=== PATIENT | female | born 1965 | race Caucasian/White ===

== ENCOUNTER 2017-11-29 15:05 | Observation (INO) | payer SELFPAY ==
[~2017-11-29] VITALS: Ht 154.9 cm; Wt 68.0 kg
[~2017-11-29 15:05] MED LIST: LIPI40TA PO; VARE1PAK3 PO; VARE1PAK5 PO
[2017-11-29 15:09] VITALS: BP 120/85; PULSE 118; RESP 18; TEMP 98; O2SAT 97
[2017-11-29] MEDS ORDERED: VANCOMYCIN INJ 1,000 MG in SODIUM CHLOR 0.9% 250 ML INJ 250 ML IV ONE (17:45)
[2017-11-29] MEDS ORDERED: TETANUS/DIPHTHERIA TOXOID ADULT 0.5 ML VIAL IM ONE (17:45)
--- NOTE | 2017-11-29 17:45 | PD ---
HPI Chief Complaint: Skin Problem Time Seen by Provider: 17:26 Travel History International Travel<30 days: No Contact w/Intl Traveler<30days: No Traveled to known affect area: No History of Present Illness HPI 52-year-old female complains of redness swelling and pain on the left foot and left leg. Patient states that she was bitten by insect 2 days ago. Patient states that she started noticing blister and increased redness swelling of the left foot left ankle with redness that extended to the left leg. Patient denies any fever chills. Patient denies any chest pain or shortness of breath. Patient states that the pain is burning pain started in her left foot and left ankle area with radiation to left leg. Patient took some leftover Bactrim DS yesterday and today. Patient states that she took Bactrim DS in the past and has tingling sensation around her mouth in the past. Patient is not up-to- date with TD booster. PFSH Past Medical History Autoimmune Disease: No Heart Rhythm Problems: No Cardiac Catheterization: No Cardiovascular Problems: Yes High Cholesterol: No Congestive Heart Failure: No Cerebrovascular Accident: Yes (2016) Diabetes: No Endocrine: No Genitourinary: No Immune Disorder: No Musculoskeletal: No Neurologic: No Reproductive: No Respiratory: No Past Surgical History Appendectomy: Yes Coronary Artery Bypass Graft: No Hysterectomy: Yes Tonsillectomy: Yes Social History Alcohol Use: Yes (2-3 GLASSES OF WINE/DAY) Tobacco Use: Yes (3/4 PPD) Substance Use: No Allergies-Medications (Allergen,Severity, Reaction): Coded Allergies: penicillin G (Unverified Allergy, Unknown, 05/22/17) Reported Meds & Prescriptions Reported Meds & Active Scripts Active Lipitor (Atorvastatin Calcium) 40 Mg Tab 40 Mg PO HS Chantix Continuing Month Elia (Varenicline) 1 Mg Elia 1 Mg PO BIDPC Chantix Starting Month Elia (Varenicline) 0.5 mg X 11 & 1 mg X 42 Pack 1 Tab PO DIRECTED Review of Systems General / Constitutional: No: Fever Eyes: No: Visual changes HENT: No: Headaches Cardiovascular: No: Chest Pain or Discomfort Respiratory: No: Shortness of Breath Gastrointestinal: No: Abdominal Pain Genitourinary: No: Dysuria Musculoskeletal: Positive: Edema, Pain Skin: No Rash Neurologic: No: Weakness Psychiatric: No: Depression Endocrine: No: Polydipsia Hematologic/Lymphatic: No: Easy Bruising Physical Exam Narrative GENERAL: Well-nourished, well-developed patient. SKIN: Focused skin assessment warm/dry. HEAD: Normocephalic. EYES: No scleral icterus. No injection or drainage. NECK: Supple, trachea midline. No JVD or lymphadenopathy. CARDIOVASCULAR: Regular rate and rhythm without murmurs, gallops, or rubs. RESPIRATORY: Breath sounds equal bilaterally. No accessory muscle use. GASTROINTESTINAL: Abdomen soft, non-tender, nondistended. MUSCULOSKELETAL: No cyanosis, or edema. BACK: Nontender without obvious deformity. No CVA tenderness. Patient has redness swelling of the left foot, left ankle with redness extending to the proximal left lower leg and medial aspect of left thigh. Patient has several blisters noted especially medial aspect of the left ankle and anterior aspect of the left ankle.. Data Data Last Documented VS Vital Signs Date Time Temp Pulse Resp B/P (MAP) Pulse Ox O2 Delivery O2 Flow Rate FiO2 11/29/17 15:09 98.0 118 18 120/85 (97) 97 Orders Orders Complete Blood Count With Diff (11/29/17 17:34) Comprehensive Metabolic Panel (11/29/17 17:34) Blood Culture (11/29/17 17:34) Iv Access Insert/Monitor (11/29/17 17:34) Vancomycin Inj (Vancomycin Inj) (11/29/17 17:45) Tetanus/Diphtheria Tox Adult (Tetanus/Di (11/29/17 17:45) Labs Laboratory Tests Test 11/29/17 18:10 White Blood Count 9.6 TH/MM3 Red Blood Count 4.41 MIL/MM3 Hemoglobin 15.8 GM/DL Hematocrit 45.5 % Mean Corpuscular Volume 103.2 FL Mean Corpuscular Hemoglobin 35.8 PG Mean Corpuscular Hemoglobin Concent 34.7 % Red Cell Distribution Width 13.8 % Platelet Count 267 TH/MM3 Mean Platelet Volume 7.5 FL Neutrophils (%) (Auto) 73.9 % Lymphocytes (%) (Auto) 16.2 % Monocytes (%) (Auto) 5.6 % Eosinophils (%) (Auto) 4.1 % Basophils (%) (Auto) 0.2 % Neutrophils # (Auto) 7.1 TH/MM3 Lymphocytes # (Auto) 1.5 TH/MM3 Monocytes # (Auto) 0.5 TH/MM3 Eosinophils # (Auto) 0.4 TH/MM3 Basophils # (Auto) 0.0 TH/MM3 CBC Comment DIFF FINAL Differential Comment Blood Urea Nitrogen 5 MG/DL Creatinine 0.76 MG/DL Random Glucose 95 MG/DL Total Protein 7.3 GM/DL Albumin 3.4 GM/DL Calcium Level 8.4 MG/DL Alkaline Phosphatase 128 U/L Aspartate Amino Transf (AST/SGOT) 38 U/L Alanine Aminotransferase (ALT/SGPT) 48 U/L Total Bilirubin 0.3 MG/DL Sodium Level 139 MEQ/L Potassium Level 4.0 MEQ/L Chloride Level 107 MEQ/L Carbon Dioxide Level 21.3 MEQ/L Anion Gap 11 MEQ/L Estimat Glomerular Filtration Rate 80 ML/MIN [facility] Medical Decision Making Medical Screen Exam Complete: Yes Emergency Medical Condition: Yes Interpretation(s) 1923 PM. CBC WBC 9.6. Hemoglobin 15.8 hematocrit 45.2. MCV 103.2. 73 neutrophil. AST 38. Alkaline phosphatase 128. Differential Diagnosis Differential diagnosis including cellulitis, staph scalded skin syndrome, abscess. Narrative Course 52-year-old female with redness swelling of left foot left ankle left leg. Status post insect bite 2 days ago. Td booster given. Vancomycin 1 g IV given. Diagnosis Primary Impression: Left leg cellulitis Cornell Archuleta MD Nov 29, 2017 17:45
[2017-11-29 18:25] LABS: AUTOMATED NEUTROPHIL # 7.1 TH/MM3 (1.8-7.7); BASOPHIL % 0.2 % (0.0-2.0); EOSINOPHIL # 0.4 TH/MM3 (0-0.4); EOSINOPHIL % 4.1 % (0.0-4.0); HEMATOCRIT 45.5 % (35.0-46.0); HEMOGLOBIN 15.8 GM/DL (11.6-15.3); LYMPH % 16.2 % (9.0-44.0); LYMPHOCYTE # 1.5 TH/MM3 (1.0-4.8); MEAN CELL VOLUME 103.2 FL (80.0-100.0); MEAN CORPUSCULAR HEMOGLOBIN 35.8 PG (27.0-34.0); MEAN CORPUSCULAR HGB CONC 34.7 % (32.0-36.0); MEAN PLATELET VOLUME 7.5 FL (7.0-11.0); MONO % 5.6 % (0.0-8.0); MONOCYTE # 0.5 TH/MM3 (0-0.9); NEUT % 73.9 % (16.0-70.0); PLATELET COUNT 267 TH/MM3 (150-450); RED BLOOD COUNT 4.41 MIL/MM3 (4.00-5.30); RED CELL DISTRIBUTION WIDTH 13.8 % (11.6-17.2); WHITE BLOOD COUNT 9.6 TH/MM3 (4.0-11.0)
[2017-11-29 18:46] LABS: ALBUMIN 3.4 GM/DL (3.4-5.0); AST (GOT) 38 U/L (15-37); BICARBONATE 21.3 MEQ/L (21.0-32.0); BLOOD UREA NITROGEN 5 MG/DL (7-18); CALCIUM 8.4 MG/DL (8.5-10.1); CHLORIDE 107 MEQ/L (98-107); CREATININE 0.76 MG/DL (0.50-1.00); GLOMERULAR FILTRATION RATE 80 ML/MIN (>89); GLUCOSE,RANDOM 95 MG/DL (74-106); SODIUM (NA) 139 MEQ/L (136-145)
[2017-11-29 18:50] LABS: ALKALINE PHOSPHATASE 128 U/L (45-117); ALT (GPT) 48 U/L (10-53); TOTAL BILIRUBIN ADULT 0.3 MG/DL (0.2-1.0); TOTAL PROTEIN 7.3 GM/DL (6.4-8.2)
--- NOTE | 2017-11-29 20:07 | HHI.HP ---
[facility] Service Family Medicine Primary Care Physician Cameron Tafoya MD Admission Diagnosis Left leg cellulitis Diagnoses: International Travel<30 Days: No Contact w/Intl Traveler<30days: No Known Affected Area: No History of Present Illness Mrs. Spicer is a 52-year-old female presenting to the ED with a left lower extremity wound. Patient states that on night she experienced 3 horsefly bites on the posterior portion of her knee, medial aspect of her ankle , and anterior aspect of her ankle. The bites were painful at the time of the bite, however this pain resolved. Patient noticed that each bite began to be pruritic resulting in her scratching each bite likely during her sleep that night. She noticed the area becoming erythematous and mildly swollen Friday. Therefore she took some "leftover" Bactrim Friday morning, Friday night, and Friday morning. However this did not decrease her symptoms. She then started to develop to prominent bullae on the medial and anterior aspects of her ankle which prompted her visit to the emergency department. Each bite has a small eschar with only the anterior ankle draining clear, serosanguineous fluid. Patient denies any purulent drainage or bleeding. She states that the erythema initially started around each bite, but now has spread up her medial leg toward her inguinal area. She denies any fevers, chills, shortness of breath, or fatigue at this time. Otherwise she has no complaints. Review of Systems Constitutional: DENIES: Fever, Chills Eyes: DENIES: Blurred vision, Double Vision Ears, nose, mouth, throat: DENIES: Throat pain, Ear Pain, Running Nose Respiratory: COMPLAINS OF: Cough, DENIES: Shortness of breath Cardiovascular: DENIES: Chest pain, Syncope Gastrointestinal: DENIES: Black stools, Diarrhea, Nausea, Vomiting Genitourinary: DENIES: Hematuria, Dysuria Musculoskeletal: DENIES: Joint pain, Muscle aches Integumentary: COMPLAINS OF: Abnormal pigmentation, Pruritus, DENIES: Rash Hematologic/lymphatic: COMPLAINS OF: Lymphadenopathy Immunologic/allergic: DENIES: Urticaria Neurologic: DENIES: Headache Psychiatric: DENIES: Mood changes Past Family Social History Past Medical History High blood pressure CVA Immunizations: Influenza: recommended, defers Td/Tdap: recommended, defers, given in ER Varicella: exposed as a child Zoster: at age 60 Past Surgical History Hysterectomy Appendectomy Tonsillectomy Allergies: Coded Allergies: penicillin G (Unverified Allergy, Unknown, 05/22/17) Family History Father: Unknown Mother: Living, CEA, otherwise healthy Siblings: Only child Children: Healthy Social History Living Situation: Lives with Work history: Works at [employer] Tobacco: 1ppd for 35 years Alcohol: Glass of wine per day Illicit drug use: No reported history Physical Exam Vital Signs Vital Signs Date Time Temp Pulse Resp B/P (MAP) Pulse Ox O2 Delivery O2 Flow Rate FiO2 11/29/17 15:09 98.0 118 18 120/85 (97) 97 Physical Exam GENERAL: Well-nourished, well-developed female lying in bed in no acute distress. Family at the bedside SKIN: Warm and dry. LLE: 3 darkened eschars secondary to bug bites on the posterior aspect of the left knee, medial aspect of the left ankle, and the anterior aspect of the left ankle. 2 prominent bullae on the medial and anterior aspects of the ankle that is tense and fluctuant with what appears to be serosanguineous fluid. Large area of erythema outlined in surgical pin ranging from the anterior aspect of the foot to the pelvic crease. No inguinal lymphadenopathy appreciated, however small scattered lymphadenopathy appreciated along the medial aspect of the left leg that is nontender. Area is warm to the touch. 2 + pulses at the popliteal, PT, and DP arteries. No areas of fluctuance concerning for abscess at this time. HEENT: Atraumatic, normocephalic with extraocular motions intact. No rhinorrhea. Oropharynx clear without erythema or exudate. No LAD, JVD, or thyroid abnormality appreciated. CARDIOVASCULAR: Regular rate and rhythm without obvious murmurs, gallops, or rubs. 2+ pulses in all four extremities. RESPIRATORY: Clear to auscultation bilaterally with no crackles, wheezes, or rhonchi. No increased work of breathing. GASTROINTESTINAL: Abdomen soft, non-tender, nondistended with positive bowel sounds. No masses appreciated. MUSCULOSKELETAL: No cyanosis or edema. No calf tenderness. Ambulating well without assistance. Left lower extremity: Range of motion, strength, and sensation intact throughout the left lower extremity. NEURO/PSYCH: Afocal. Awake, alert, and oriented x3. Normal speech and judgement. Laboratory Laboratory Tests Test 11/29/17 18:10 White Blood Count 9.6 Red Blood Count 4.41 Hemoglobin 15.8 Hematocrit 45.5 Mean Corpuscular Volume 103.2 Mean Corpuscular Hemoglobin 35.8 Mean Corpuscular Hemoglobin Concent 34.7 Red Cell Distribution Width 13.8 Platelet Count 267 Mean Platelet Volume 7.5 Neutrophils (%) (Auto) 73.9 Lymphocytes (%) (Auto) 16.2 Monocytes (%) (Auto) 5.6 Eosinophils (%) (Auto) 4.1 Basophils (%) (Auto) 0.2 Neutrophils # (Auto) 7.1 Lymphocytes # (Auto) 1.5 Monocytes # (Auto) 0.5 Eosinophils # (Auto) 0.4 Basophils # (Auto) 0.0 CBC Comment DIFF FINAL Differential Comment Blood Urea Nitrogen 5 Creatinine 0.76 Random Glucose 95 Total Protein 7.3 Albumin 3.4 Calcium Level 8.4 Alkaline Phosphatase 128 Aspartate Amino Transf (AST/SGOT) 38 Alanine Aminotransferase (ALT/SGPT) 48 Total Bilirubin 0.3 Sodium Level 139 Potassium Level 4.0 Chloride Level 107 Carbon Dioxide Level 21.3 Anion Gap 11 Estimat Glomerular Filtration Rate 80 Date/Time Source Procedure Growth Status 11/29/17 18:10 Blood Peripheral Aerobic Blood Culture Pending Received 11/29/17 18:10 Blood Peripheral Anaerobic Blood Culture Pending Received Result Diagram: 11/29/17180911/29/171809 Caprini VTE Risk Assessment Caprini VTE Risk Assessment: Mod/High Risk (score >= 2) Caprini Risk Assessment Model Point Value = 1 Point Value = 2 Point Value = 3 Point Value = 5 Age 41-60 Minor surgery BMI > 25 kg/m2 Swollen legs Varicose veins or History of unexplained or recurrent spontaneous Oral contraceptives or hormone replacement Sepsis (< 1 month) Serious lung disease, including pneumonia (< 1 month) Abnormal pulmonary function Acute myocardial infarction Congestive heart failure (< 1 month) History of inflammatory bowel disease Medical patient at bed rest Age 61-74 Arthroscopic surgery Major open surgery (> 45 min) Laparoscopic surgery (> 45 min) Malignancy Confined to bed (> 72 hours) Immobilizing plaster cast Central venous access Age >= 75 History of VTE Family history of VTE Factor V Leiden Prothrombin [id number] Lupus anticoagulant Anticardiolipin antibodies Elevated serum homocysteine Heparin-induced thrombocytopenia Other congenital or acquired thrombophilia Stroke (< 1 month) Elective arthroplasty Hip, pelvis, or leg fracture Acute spinal cord injury (< 1 month) Prophylaxis Regimen Total Risk Factor Score Risk Level Prophylaxis Regimen 0-1 Low Early ambulation 2 Moderate Order ONE of the following: *Sequential Compression Device (SCD) *Heparin 5000 units SQ BID 3-4 Higher Order ONE of the following medications: *Heparin 5000 units SQ TID *Enoxaparin/Lovenox 40 mg SQ daily (WT < 150 kg, CrCl > 30 mL/min) *Enoxaparin/Lovenox 30 mg SQ daily (WT < 150 kg, CrCl > 10-29 mL/min) *Enoxaparin/Lovenox 30 mg SQ BID (WT < 150 kg, CrCl > 30 mL/min) AND/OR *Sequential Compression Device (SCD) 5 or more Highest Order ONE of the following medications: *Heparin 5000 units SQ TID (Preferred with Epidurals) *Enoxaparin/Lovenox 40 mg SQ daily (WT < 150 kg, CrCl > 30 mL/min) *Enoxaparin/Lovenox 30 mg SQ daily (WT < 150 kg, CrCl > 10-29 mL/min) *Enoxaparin/Lovenox 30 mg SQ BID (WT < 150 kg, CrCl > 30 mL/min) AND *Sequential Compression Device (SCD) Assessment and Plan Assessment and Plan Ms. Spicer is a 52-year-old female presenting to the ED with cellulitis of the left lower extremity. Code Status FULL CODE Discussed Condition With Dr. Archuleta, ED physician Problem List: (1) Left leg cellulitis ICD Codes: L03.116 - Cellulitis of left lower limb Status: Acute Plan: Patient presenting with left lower extremity cellulitis. Patient currently does not meet SIRS/sepsis criteria. -CBC: WBC 9.6 with 73.9% neutrophils -Blood cultures: Pending -ESR: Pending -Wound nurse consulted -K thermia pad ordered -Nursing staff to collect wound culture if area begins to drain Medications: -Patient given vancomycin 1 g in ED -Continue vancomycin, pharmacy consulted for dosing assistance -Patient administered tetanus booster in ED -Patient received dexamethasone 8 mg IV and Benadryl 25 mg once once in ED -Continue Benadryl 25 mg as needed for itching -Tylenol/Toradol as needed for pain (2) Tobacco abuse ICD Codes: Z72.0 - Tobacco use Status: Chronic Plan: Patient with reported tobacco abuse Medications: -Daily nicotine patch (3) History of CVA (cerebrovascular accident) ICD Codes: Z86.73 - Personal history of transient ischemic attack (TIA), and cerebral infarction without residual deficits Status: Chronic Plan: Patient with history of CVA without residual effects Medications: -Continue home aspirin and Lipitor (4) Nutrition, metabolism, and development symptoms ICD Codes: R63.8 - Other symptoms and signs concerning food and fluid intake Status: Acute Plan: -Fluids: Patient tolerating fluids by mouth, appears well-hydrated -Diet: Regular diet as tolerated -Electrolytes: Within normal limits, continue to monitor -Prophylaxis: Clonidine as needed for blood pressure greater than 180/110, DuoNeb's as needed for shortness of breath, Zofran as needed for nausea/vomiting , Tylenol/Toradol as needed for headache/pain, famotidine as needed for reflux, Tessalon Perles as needed for cough -Physical therapy ordered (5) DVT prophylaxis Status: Acute Plan: -SCDs Medications: -Heparin 5000 units every 8 hours Physician Certification 2 Midnight Certification Type: Admission for Inpatient Services Order for Inpatient Services The services are ordered in accordance with Medicare regulations or non- Medicare payer requirements, as applicable. In the case of services not specified as inpatient-only, they are appropriately provided as inpatient services in accordance with the 2-midnight benchmark. Estimated LOS (days): 3 3 days is the estimated time the patient will need to remain in the hospital, assuming treatment plan goals are met and no additional complications. Post-Hospital Plan: Home Cameron Tafoya MD R2 Nov 29, 2017 20:07
[2017-11-29] MEDS ORDERED: DEXAMETHASONE SOD PHOS 4 MG/ML VIAL IV PUSH ONE (20:30)
[2017-11-29] MEDS ORDERED: ACETAMINOPHEN 500 MG CPLT PO PRN (20:30)
[2017-11-29] MEDS ORDERED: diphenhydrAMINE HCL 50 MG/ML VIAL IV PUSH ONE (20:30)
[2017-11-29] MEDS ORDERED: Vancomycin Consult Pharmacy 1 EA OTHER SCH (20:30)
[2017-11-29] MEDS ORDERED: SODIUM CHLORIDE 0.9% FLUSH 10 ML FLUSH IV FLUSH PRN (20:30)
[2017-11-29] MEDS ORDERED: KETOROLAC TROMETHAMINE 30 MG/ML (IVP) VIAL IVP PRN (20:30)
[2017-11-29] MEDS ORDERED: REMOVE OLD PATCH T-DERMAL SCH (21:00)
[2017-11-29 21:23] VITALS: BP 118/81; PULSE 88; RESP 18; TEMP 97.8; O2SAT 96
[2017-11-29] MEDS: HEPARIN SODIUM - SQ 10,000 UNITS/ML VIAL SQ SCH (21:33)
[2017-11-29] MEDS: SODIUM CHLOR 0.9% 1000 ML INJ 1,000 ML IV SCH (21:33)
[2017-11-29] MEDS: SODIUM CHLORIDE 0.9% FLUSH 10 ML FLUSH IV FLUSH SCH (21:34)
[2017-11-29] MEDS ORDERED: ATORVASTATIN 40 MG TAB PO SCH (22:00)
[2017-11-29] MEDS ORDERED: diphenhydrAMINE HCL 25 MG CAP PO PRN (22:15)
[2017-11-29] MEDS ORDERED: cloNIDine HCL 0.1 MG TAB PO PRN (22:15)
[2017-11-29] MEDS ORDERED: FAMOTIDINE 20 MG TAB PO PRN (22:15)
[2017-11-29] MEDS ORDERED: ONDANSETRON ODT 4 MG TAB PO PRN (22:15)
[2017-11-29] MEDS ORDERED: RESP: ALBUTEROL 2.5 MG/IPRATROPIUM 0.5 MG NEB (PRN) NEB (22:15)
[2017-11-29] MEDS ORDERED: BENZONATATE 100 MG CAP PO PRN (22:15)
[2017-11-29] MEDS ORDERED: MAGNESIUM HYDROXIDE SUSP 30 ML CUP PO PRN (22:30)
[2017-11-29] MEDS ORDERED: DOCUSATE SODIUM 50 MG/SENNA 8.6 MG TAB PO PRN (22:30)
[2017-11-29] MEDS ORDERED: BISACODYL 10 MG SUPP RECTAL PRN (22:30)
[2017-11-29] MEDS ORDERED: SENNOSIDES 8.6 MG TAB PO PRN (22:30)
[2017-11-29 23:47] VITALS: BP 115/75; PULSE 91; RESP 16; TEMP 98.3; O2SAT 94
[2017-11-30 03:40] VITALS: BP 107/60; PULSE 92; RESP 17; TEMP 98.2; O2SAT 97
[2017-11-30] MEDS: HEPARIN SODIUM - SQ 10,000 UNITS/ML VIAL SQ SCH (05:09)
[2017-11-30 07:08] LABS: AUTOMATED NEUTROPHIL # 7.1 TH/MM3 (1.8-7.7); BASOPHIL % 0.4 % (0.0-2.0); EOSINOPHIL % 0.3 % (0.0-4.0); HEMATOCRIT 42.8 % (35.0-46.0); HEMOGLOBIN 14.7 GM/DL (11.6-15.3); LYMPH % 8.3 % (9.0-44.0); LYMPHOCYTE # 0.7 TH/MM3 (1.0-4.8); MEAN CELL VOLUME 102.6 FL (80.0-100.0); MEAN CORPUSCULAR HEMOGLOBIN 35.1 PG (27.0-34.0); MEAN CORPUSCULAR HGB CONC 34.3 % (32.0-36.0); MEAN PLATELET VOLUME 7.6 FL (7.0-11.0); MONO % 1.3 % (0.0-8.0); MONOCYTE # 0.1 TH/MM3 (0-0.9); NEUT % 89.7 % (16.0-70.0); PLATELET COUNT 274 TH/MM3 (150-450); RED BLOOD COUNT 4.17 MIL/MM3 (4.00-5.30); RED CELL DISTRIBUTION WIDTH 13.3 % (11.6-17.2)
[2017-11-30 07:34] LABS: BICARBONATE 20.6 MEQ/L (21.0-32.0); CALCIUM 8.3 MG/DL (8.5-10.1); CREATININE 0.71 MG/DL (0.50-1.00)
[2017-11-30 08:19] VITALS: BP 120/60; PULSE 68; RESP 20; TEMP 98.2; O2SAT 96
[2017-11-30] MEDS ORDERED: NICOTINE 14 MG/24 HR PATCH T-DERMAL SCH (09:00)
[2017-11-30] MEDS ORDERED: ASPIRIN 81 MG CHEW TAB CHEW SCH (09:00)
--- NOTE | 2017-11-30 09:07 | HHI.DCPOC ---
Discharge Care Plan Diagnosis: (1) Left leg cellulitis Goals to Promote Your Health * To prevent worsening of your condition and complications * To maintain your health at the optimal level Directions to Meet Your Goals Take your medications as prescribed Follow your dietary instruction Follow activity as directed Keep your appointments as scheduled Take your immunizations and boosters as scheduled If your symptoms worsen call your PCP, if no PCP go to Urgent Care Center or Emergency Room Smoking is Dangerous to Your Health. Avoid second hand smoke Call the 24-hour hour crisis hotline for domestic abuse at Amber Lehman MD R1 Nov 30, 2017 09:07
[2017-11-30] MEDS ORDERED: BACT800T5 PO (09:23)
[2017-11-30] MEDS ORDERED: HYDR1OIN6 TOPICAL (09:23)
[2017-11-30] MEDS ORDERED: ASPI81 CHEW (09:23)
--- NOTE | 2017-11-30 09:24 | HHI.HP ---
[facility] Service Family Medicine Primary Care Physician Cameron Tafoya MD Admission Diagnosis Left leg cellulitis Diagnoses: (1) Left leg cellulitis Diagnosis: Principal (2) Tobacco abuse Diagnosis: Principal (3) History of CVA (cerebrovascular accident) Diagnosis: Principal (4) Nutrition, metabolism, and development symptoms Diagnosis: Principal (5) DVT prophylaxis Diagnosis: Principal International Travel<30 Days: No Contact w/Intl Traveler<30days: No Known Affected Area: No History of Present Illness Mrs. Spicer is a 52-year-old female presenting to the ED with left lower extremity wounds. Patient states that on night she experienced 3 yellow fly bites on the posterior portion of her knee, medial aspect of her ankle, and anterior aspect of her ankle. The bites were painful at the time of the bite, however this pain resolved. Patient noticed that each bite began to be pruritic resulting in her scratching each bite likely during her sleep that night. She noticed the area becoming erythematous and mildly swollen Friday. Therefore she took some "leftover" Bactrim Friday morning, Friday night, and Friday morning. However this did not decrease her symptoms. She then started to develop to prominent bullae on the medial and anterior aspects of her ankle which prompted her visit to the emergency department. Each bite has a small eschar with only the anterior ankle draining clear, serosanguineous fluid. Patient denies any purulent drainage or bleeding. She states that the erythema initially started around each bite, but now has spread up her medial leg toward her inguinal area. She denies any fevers, chills, shortness of breath, or fatigue at this time. Otherwise she has no complaints. Today she is remarkably better. Her erythema is reduced in her entire leg. She has some mild itching at this point. She had solumedrol, etc. which has greatly improved her leg. Review of Systems Other Constitutional: DENIES: Fever, Chills Eyes: DENIES: Blurred vision, Double Vision Ears, nose, mouth, throat: DENIES: Throat pain, Ear Pain, Running Nose Respiratory: COMPLAINS OF: Cough, DENIES: Shortness of breath Cardiovascular: DENIES: Chest pain, Syncope Gastrointestinal: DENIES: Black stools, Diarrhea, Nausea, Vomiting Genitourinary: DENIES: Hematuria, Dysuria Musculoskeletal: DENIES: Joint pain, Muscle aches Integumentary: COMPLAINS OF: Abnormal pigmentation, Pruritus, DENIES: Rash Hematologic/lymphatic: COMPLAINS OF: Lymphadenopathy Immunologic/allergic: DENIES: Urticaria Neurologic: DENIES: Headache Psychiatric: DENIES: Mood changes Past Family Social History Past Medical History High blood pressure CVA Immunizations: Influenza: recommended, defers Td/Tdap: recommended, defers, given in ER Varicella: exposed as a child Zoster: at age 60 Past Surgical History Hysterectomy Appendectomy Tonsillectomy Allergies: Coded Allergies: penicillin G (Unverified Allergy, Unknown, 05/22/17) Family History Father: Unknown Mother: Living, CEA, otherwise healthy Siblings: Only child Children: Healthy Social History Living Situation: Lives with Work history: Works at [employer] Tobacco: 1ppd for 35 years Alcohol: Glass of wine per day Illicit drug use: No reported history Physical Exam Vital Signs Vital Signs Date Time Temp Pulse Resp B/P (MAP) Pulse Ox O2 Delivery O2 Flow Rate FiO2 11/30/17 08:19 98.2 68 20 120/60 (80) 96 11/30/17 03:40 98.2 92 17 107/60 (76) 97 11/30/17 00:48 21 11/29/17 23:47 98.3 91 16 115/75 (88) 94 11/29/17 21:23 97.8 88 18 118/81 (93) 96 11/29/17 15:09 98.0 118 18 120/85 (97) 97 Physical Exam Healthy appearing. SKIN: Warm and dry. LLE: 3 darkened eschars secondary to bug bites on the posterior aspect of the left knee, medial aspect of the left ankle, and the anterior aspect of the left ankle. 1 prominent bullae on the medial aspect of the ankle that is tense and fluctuant with what appears to be serosanguineous fluid other bullae drained itself. Large area of erythema outlined in surgical pin ranging from the anterior aspect of the foot to the pelvic crease. No inguinal lymphadenopathy appreciated, however small scattered lymphadenopathy appreciated along the medial aspect of the left leg that is nontender. Area is warm to the touch. 2+ pulses at the popliteal, PT, and DP arteries. No areas of fluctuance concerning for abscess at this time. HEENT: Atraumatic, normocephalic with extraocular motions intact. No rhinorrhea. Oropharynx clear without erythema or exudate. No LAD, JVD, or thyroid abnormality appreciated. CARDIOVASCULAR: Regular rate and rhythm without obvious murmurs, gallops, or rubs. 2+ pulses in all four extremities. RESPIRATORY: Clear to auscultation bilaterally with no crackles, wheezes, or rhonchi. No increased work of breathing. GASTROINTESTINAL: Abdomen soft, non-tender, nondistended with positive bowel sounds. No masses appreciated. MUSCULOSKELETAL: No cyanosis or edema. No calf tenderness. Ambulating well without assistance. Left lower extremity: Range of motion, strength, and sensation intact throughout the left lower extremity. NEURO/PSYCH: Afocal. Awake, alert, and oriented x3. Normal speech and judgement. Laboratory Laboratory Tests Test 11/29/17 18:10 11/30/17 06:55 White Blood Count 9.6 8.0 Red Blood Count 4.41 4.17 Hemoglobin 15.8 14.7 Hematocrit 45.5 42.8 Mean Corpuscular Volume 103.2 102.6 Mean Corpuscular Hemoglobin 35.8 35.1 Mean Corpuscular Hemoglobin Concent 34.7 34.3 Red Cell Distribution Width 13.8 13.3 Platelet Count 267 274 Mean Platelet Volume 7.5 7.6 Neutrophils (%) (Auto) 73.9 89.7 Lymphocytes (%) (Auto) 16.2 8.3 Monocytes (%) (Auto) 5.6 1.3 Eosinophils (%) (Auto) 4.1 0.3 Basophils (%) (Auto) 0.2 0.4 Neutrophils # (Auto) 7.1 7.1 Lymphocytes # (Auto) 1.5 0.7 Monocytes # (Auto) 0.5 0.1 Eosinophils # (Auto) 0.4 0.0 Basophils # (Auto) 0.0 0.0 CBC Comment DIFF FINAL DIFF FINAL Differential Comment Erythrocyte Sedimentation Rate 15 Blood Urea Nitrogen 5 6 Creatinine 0.76 0.71 Random Glucose 95 140 Total Protein 7.3 Albumin 3.4 Calcium Level 8.4 8.3 Alkaline Phosphatase 128 Aspartate Amino Transf (AST/SGOT) 38 Alanine Aminotransferase (ALT/SGPT) 48 Total Bilirubin 0.3 Sodium Level 139 140 Potassium Level 4.0 4.2 Chloride Level 107 109 Carbon Dioxide Level 21.3 20.6 Anion Gap 11 10 Estimat Glomerular Filtration Rate 80 86 Date/Time Source Procedure Growth Status 11/29/17 22:25 Blood Peripheral Aerobic Blood Culture Pending Received 11/29/17 22:25 Blood Peripheral Anaerobic Blood Culture Pending Received Result Diagram: 11/30/17 0655 11/30/1755 Caprindawson VTE Risk Assessment Caprini VTE Risk Assessment: Mod/High Risk (score >= 2) Caprini Risk Assessment Model Point Value = 1 Point Value = 2 Point Value = 3 Point Value = 5 Age 41-60 Minor surgery BMI > 25 kg/m2 Swollen legs Varicose veins or History of unexplained or recurrent spontaneous Oral contraceptives or hormone replacement Sepsis (< 1 month) Serious lung disease, including pneumonia (< 1 month) Abnormal pulmonary function Acute myocardial infarction Congestive heart failure (< 1 month) History of inflammatory bowel disease Medical patient at bed rest Age 61-74 Arthroscopic surgery Major open surgery (> 45 min) Laparoscopic surgery (> 45 min) Malignancy Confined to bed (> 72 hours) Immobilizing plaster cast Central venous access Age >= 75 History of VTE Family history of VTE Factor V Leiden Prothrombin [id number] Lupus anticoagulant Anticardiolipin antibodies Elevated serum homocysteine Heparin-induced thrombocytopenia Other congenital or acquired thrombophilia Stroke (< 1 month) Elective arthroplasty Hip, pelvis, or leg fracture Acute spinal cord injury (< 1 month) Prophylaxis Regimen Total Risk Factor Score Risk Level Prophylaxis Regimen 0-1 Low Early ambulation 2 Moderate Order ONE of the following: *Sequential Compression Device (SCD) *Heparin 5000 units SQ BID 3-4 Higher Order ONE of the following medications: *Heparin 5000 units SQ TID *Enoxaparin/Lovenox 40 mg SQ daily (WT < 150 kg, CrCl > 30 mL/min) *Enoxaparin/Lovenox 30 mg SQ daily (WT < 150 kg, CrCl > 10-29 mL/min) *Enoxaparin/Lovenox 30 mg SQ BID (WT < 150 kg, CrCl > 30 mL/min) AND/OR *Sequential Compression Device (SCD) 5 or more Highest Order ONE of the following medications: *Heparin 5000 units SQ TID (Preferred with Epidurals) *Enoxaparin/Lovenox 40 mg SQ daily (WT < 150 kg, CrCl > 30 mL/min) *Enoxaparin/Lovenox 30 mg SQ daily (WT < 150 kg, CrCl > 10-29 mL/min) *Enoxaparin/Lovenox 30 mg SQ BID (WT < 150 kg, CrCl > 30 mL/min) AND *Sequential Compression Device (SCD) Assessment and Plan Assessment and Plan Ms. Spicer is a 52-year-old female presenting to the ED with cellulitis vs inflammation of the left lower extremity. leaning towards inflammation as the yellow flies cause this plus she got vast improvement overnight which usually does not happen with infection but does happen with inflammation home today. see D/C note for details doing very well Problem List: (1) Left leg cellulitis ICD Codes: L03.116 - Cellulitis of left lower limb Status: Acute Plan: Patient presenting with left lower extremity cellulitis. Patient currently does not meet SIRS/sepsis criteria. -CBC: WBC 9.6 with 73.9% neutrophils -Blood cultures: Pending -ESR: Pending -Wound nurse consulted, wouldn't see until Friday -K thermia pad ordered -Nursing staff to collect wound culture if area begins to drain Medications: -Patient given vancomycin 1 g in ED -Continued vancomycin, pharmacy consulted for dosing assistance -Patient administered tetanus booster in ED -Patient received dexamethasone 8 mg IV and Benadryl 25 mg once once in ED -Continue Benadryl 25 mg as needed for itching -Tylenol/Toradol as needed for pain -she is remarkably improved so will send her home on po per her request, see D/ C note (2) Tobacco abuse ICD Codes: Z72.0 - Tobacco use Status: Chronic Plan: Patient with reported tobacco abuse she wants to quit and was encouraged to do so Medications: -Daily nicotine patch (3) History of CVA (cerebrovascular accident) ICD Codes: Z86.73 - Personal history of transient ischemic attack (TIA), and cerebral infarction without residual deficits Status: Chronic Plan: Patient with history of CVA without residual effects Medications: -Continue home aspirin and Lipitor (4) Nutrition, metabolism, and development symptoms ICD Codes: R63.8 - Other symptoms and signs concerning food and fluid intake Status: Acute Plan: -Fluids: Patient tolerating fluids by mouth, appears well-hydrated -Diet: Regular diet as tolerated -Electrolytes: Within normal limits, continue to monitor -Prophylaxis: Clonidine as needed for blood pressure greater than 180/110, DuoNeb's as needed for shortness of breath, Zofran as needed for nausea/vomiting , Tylenol/Toradol as needed for headache/pain, famotidine as needed for reflux, Tessalon Perles as needed for cough -Physical therapy ordered (5) DVT prophylaxis Status: Acute Plan: -SCDs Medications: -Heparin 5000 units every 8 hours Jessica Marie MD Nov 30, 2017 09:24
[2017-11-30] MEDS: SODIUM CHLORIDE 0.9% FLUSH 10 ML FLUSH IV FLUSH SCH (11:12)
[2017-11-30] MEDS: SODIUM CHLOR 0.9% 1000 ML INJ 1,000 ML IV SCH (11:13)
[2017-11-30] MEDS ORDERED: VANCOMYCIN INJ 1,000 MG in SODIUM CHLOR 0.9% 250 ML INJ 250 ML IV SCH (12:00)
[2017-11-30] MEDS ORDERED: CLIN300C5 PO (12:56)
[2017-12-01] MEDS ORDERED: PHARMACY ORDERED LAB ONE (23:45)
== END 2017-11-30 16:22 | disposition home or self-care (01) ==
LOC: NEPD 15:05 → INTOOBSV 18:56 → NEDA 18:56 → NEPHCDU 21:14
PROVIDERS: ADMIT Family Medicine; ATTEND Family Medicine
DX: L03.116 Cellulitis of left lower limb (principal); R03.0 Elevated blood-pressure reading, without diagnosis of hypertension; F17.210 Nicotine dependence, cigarettes, uncomplicated; W57.XXXA Bitten or stung by nonvenomous insect and other nonvenomous arthropods, initial encounter; Z86.73 Personal history of transient ischemic attack (TIA), and cerebral infarction without residual deficits; Z23 Encounter for immunization
CPT/HCPCS: 80048; 80053; 85025; 85652; 87040; 90471; 90714; 94150; 96361; 96365; 96366; 96372; 96375; 99285; G0378; J1100; J1200; J1644; J3370; J7030; J7050